=== PATIENT | male | born 1990 | race Caucasian/White ===

== ENCOUNTER 2017-08-30 14:31 | Emergency (ER) | payer SELFPAY ==
[~2017-08-30] VITALS: Ht 175.3 cm; Wt 90.7 kg
[2017-08-30 15:16] VITALS: BP 153/89
[2017-08-30] MEDS ORDERED: IV NS 0.9% 1,000 ML BAG IV ONE (15:30)
[2017-08-30 16:05] LABS: BASOPHILS % (AUTO) 0.1 % (0.0-2.0); EOSINOPHILS # (AUTO) 0.1 /CMM (0.0-0.7); EOSINOPHILS % (AUTO) 1.4 % (0.0-6.0); HEMATOCRIT 47 % (39-51); HEMOGLOBIN 16.1 g/dL (13.5-17.5); LYMPHOCYTES # (AUTO) 2.4 /CMM (0.8-4.8); LYMPHOCYTES % (AUTO) 23.3 % (20.0-44.0); MEAN CORPUSCULAR HEMOGLOBIN 32 PG (26.0-33.0); MEAN CORPUSCULAR HGB CONC 34 g/dl (31.0-36.0); MEAN CORPUSCULAR VOLUME 93 fL (80-96); MONOCYTES # (AUTO) 0.6 /CMM (0.1-1.30); MONOCYTES % (AUTO) 5.6 % (2.0-12.0); NEUTROPHILS # (AUTO) 7.3 /CMM (1.8-8.9); NEUTROPHILS % (AUTO) 69.6 % (43.0-81.0); PLATELET COUNT (AUTO) 289 /CMM (150-450); RDW COEFFICIENT OF VARIATION 12.1 (11.5-15.0); WHITE BLOOD COUNT (AUTO) 10.5 K/uL (4.3-11.0)
[2017-08-30 16:15] LABS: CALCIUM, SERUM 9.3 mg/dL (8.5-10.1); CREATININE 0.9 mg/dL (0.6-1.3); POTASSIUM 3.9 mmol/L (3.5-5.1)
[2017-08-30 16:25] LABS: INR 0.96 (0.87-1.13)
--- NOTE | 2017-08-30 16:27 | NUR ---
RAMONITA met with pt. bedside to offer homeless resources. Pt. is alert and oriented x 4. Pt. states he has been homeless for the past two years. Pt. is originally from [place] but has been moving [place] the [facility] to [facility] and now [facility]. Pt. has a tap card and is able to take the bus for transportation. RAMONITA offered pt. List of homeless shelters in [place], List of food resources, medical clinics and list of Public Social service offices in [facility]. Pt. has no source of income. RAMONITA encouraged pt. to go to the local [employer] office and apply for general relief and food stamps. No other social service needs are required at this time.
--- NOTE | 2017-08-30 16:56 | NUR ---
IV removed. Catheter intact and site benign. Pressure and 4x4 applied to site. No bleeding noted.
--- NOTE | 2017-08-30 16:58 | NUR ---
PT. VERBALIZED UNDERSTANDING OF AFTERCARE INSTRUCTIONS.Patient discharged to home in stable condition. Written and verbal after care instructions given. Patient verbalizes understanding of instruction.
--- NOTE | 2017-08-30 16:58 | NUR ---
IV removed. Catheter intact and site benign. Pressure and 4x4 applied to site. No bleeding noted.
== END 2017-08-30 16:59 | disposition home or self-care (01) ==
LOC: ER 14:41
DX: L03.032 Cellulitis of left toe (principal); L03.031 Cellulitis of right toe; J45.909 Unspecified asthma, uncomplicated; F25.0 Schizoaffective disorder, bipolar type
CPT/HCPCS: 36415; 80048; 85025; 85730; 96360; 99284; A4606; J7030; Z7610